=== PATIENT | male | born 1980 | race Hispanic/Latino ===

== ENCOUNTER 2017-10-12 18:26 | Emergency (ER) | payer MEDICAID ==
[2017-10-12 18:38] VITALS: TEMP 97.8
--- NOTE | 2017-10-12 19:21 | ED PDOC ---
Arrival/HPI - General Historian: Patient <Jori Eubanks A - Last Filed: 10/12/17 19:50> <Eliu Mendoza - Last Filed: 10/12/17 23:42> - General Chief Complaint: Back Pain Time Seen by Provider: 10/12/17 18:42 - History of Present Illness Narrative History of Present Illness (Text): 10/12/17 19:18 37yo male in ED with complaint of right sided lower back pain that radiates to his lower extremity. Notes that pain started while lifting boxes today. Pain is worse with movement and palpation. Denies urinary/fecal incontinence, abdominal pain, urinary symptoms, focal weakness, saddle anesthesia, any other complaint. (ChaJori A) Past Medical History - Provider Review Nursing Documentation Reviewed: Yes - Psychiatric Hx Psychophysiologic Disorder: No Hx Substance Use: No <Jori Eubanks A - Last Filed: 10/12/17 19:50> Family/Social History - Physician Review Nursing Documentation Reviewed: Yes Family/Social History: Unknown Family HX Smoking Status: Heavy Smoker > 10 Cigarettes Daily Hx Alcohol Use: No Hx Substance Use: No <Jori Eubanks A - Last Filed: 10/12/17 19:50> Allergies/Home Meds <Jori Eubanks A - Last Filed: 10/12/17 19:50> <Eliu Mendoza - Last Filed: 10/12/17 23:42> Allergies/Adverse Reactions: Allergies FISH Allergy (Verified 10/12/17 18:39) URTICARIA Review of Systems - Physician Review All systems were reviewed & negative as marked: Yes - Review of Systems Constitutional: Normal Eyes: Normal ENT: Normal Respiratory: Normal Cardiovascular: Normal Gastrointestinal: Normal Genitourinary Male: Normal Musculoskeletal: Back Pain Skin: Normal Neurological: Normal Endocrine: Normal Hemo/Lymphatic: Normal Psychiatric: Normal <Jori silverman A - Last Filed: 10/12/17 19:50> Physical Exam Vital Signs Reviewed: Yes Temperature: Afebrile Blood Pressure: Normal Pulse: Regular Respiratory Rate: Normal Appearance: Positive for: Well-Appearing, Non-Toxic, Comfortable Pain Distress: None Mental Status: Positive for: Alert and Oriented X 3 - Systems Exam Head: Present: Atraumatic, Normocephalic Pupils: Present: PERRL Extroacular Muscles: Present: EOMI Conjunctiva: Present: Normal Mouth: Present: Moist Mucous Membranes Neck: Present: Normal Range of Motion Respiratory/Chest: Present: Clear to Auscultation, Good Air Exchange. No: Respiratory Distress, Accessory Muscle Use Cardiovascular: Present: Regular Rate and Rhythm, Normal S1, S2. No: Murmurs Abdomen: Present: Normal Bowel Sounds. No: Tenderness, Distention, Peritoneal Signs Back: Present: Paraspinal Tenderness (Right paralumber tenderness), Pain with Leg Raise (right leg). No: Midline Tenderness Upper Extremity: Present: Normal Inspection. No: Cyanosis, Edema Lower Extremity: Present: Normal Inspection. No: Edema Neurological: Present: GCS=15, CN II-XII Intact, Speech Normal Skin: Present: Warm, Dry, Normal Color. No: Rashes Psychiatric: Present: Alert, Oriented x 3, Normal Insight, Normal Concentration <Diru,Happiness A - Last Filed: 10/12/17 19:50> Vital Signs Temp Pulse Resp BP Pulse Ox 10/12/17 20:15 68 17 110/70 100 10/12/17 18:34 97.8 F 79 18 106/69 95 Medical Decision Making <Diru,Happiness A - Last Filed: 10/12/17 19:50> <Eliu Mendoza - Last Filed: 10/12/17 23:42> ED Course and Treatment: 10/12/17 19:50 LS xray - Negative PT was ambulatory in ED. He was neurologically intact. His pain improved in ED with medication. Result was DW the pt. He will be DC home with NSAID and muscle relaxer for MS pain. Advised to apply warm compress and shower to that area. Referred to his PMD. TRT ED for any new or worsening symptoms (Diru,Happiness A) - RAD Interpretation Radiology Orders: 10/12/17 18:59 LS SPINE WITH OBL > 18 YRS OLD [RAD] Stat - Medication Orders Current Medication Orders: Discontinued Medications Cyclobenzaprine HCl (Flexeril) 10 mg PO STAT STA Stop: 10/12/17 19:00 Last Admin: 10/12/17 19:06 Dose: 10 mg Ketorolac Tromethamine (Toradol) 60 mg IM STAT STA Stop: 10/12/17 19:00 Last Admin: 10/12/17 19:06 Dose: 60 mg MAR Pain Assessment Document 10/12/17 19:06 SF (Rec: 10/12/17 19:06 SF [place] [id number]) Pain Reassessment Is this a pain reassessment? Yes Sleep Is patient sleeping during reassessment? No Presence of Pain Presence of Pain Yes Pain Scale Used Pain Scale Used Numeric Location Left, Right or Bilateral Right Upper or Lower Lower Pain Location Body Site Back IM Administration Charges Document 10/12/17 19:06 SF (Rec: 10/12/17 19:06 [place] [id number]) Injection Site MAR Injection Site Left Deltoid Charges for Administration # of IM Administrations 1 - PA / [employer] / Resident Statement / has reviewed & agrees with the documentation as recorded. <Eliu Mendoza - Last Filed: 10/12/17 23:42> Disposition/Present on Arrival - Present on Arrival Any Indicators Present on Arrival: No History of DVT/PE: No History of Uncontrolled Diabetes: No Urinary Catheter: No History of Decub. Ulcer: No History Surgical Site Infection Following: None - Disposition Have Diagnosis and Disposition been Completed?: Yes Disposition Time: 19:55 Patient Plan: Discharge <Jori Eubanks - Last Filed: 10/12/17 19:50> <Eliu Mendoza - Last Filed: 10/12/17 23:42> - Disposition Diagnosis: Back strain Disposition: HOME/ ROUTINE Condition: STABLE Discharge Instructions (ExitCare): Back Pain (ED) Additional Instructions: Apply warm compress to area follow up with your doctor Return to ED for any new or worsening symptoms Prescriptions: Cyclobenzaprine [Cyclobenzaprine HCl] 10 mg PO TID #10 tab Ibuprofen [Motrin Tab] 600 mg PO Q6 #20 tab Referrals: Lillie Cole DO [Primary Care Provider] - Follow up with primary Forms: Koko (Belizean), WORK NOTE
[2017-10-12 20:17] VITALS: BP 110/70; PULSE 68; RESP 17; O2SAT 100
--- NOTE | 2017-10-13 09:01 | RAD ---
PROCEDURE: Radiographs of the Lumbar Spine. HISTORY: Back pain COMPARISON: No prior. FINDINGS: BONES: There is sacralization of the L5 vertebral body. There is 7 mm degenerative retrolisthesis of L5 on S1. Bone alignment and mineralization are normal. There is no acute fracture the spondylolysis. DISC SPACES: There is mild degenerative disc disease at L5-S1 with reduced disc height and facet arthropathy. The remaining disc heights are maintained. OTHER FINDINGS: There are no pathologic soft tissue calcifications. Both sacroiliac joints are normal. IMPRESSION: No acute fracture or spondylolysis. Mild degenerative disc disease at L5-S1.
== END 2017-10-12 20:17 | disposition home or self-care (01) ==
LOC: ED 18:26
DX: S39.012A Strain of muscle, fascia and tendon of lower back, initial encounter (principal); X50.9XXA Other and unspecified overexertion or strenuous movements or postures, initial encounter; Y92.9 Unspecified place or not applicable
CPT/HCPCS: 72110; 96372; 99284; J1885

== ENCOUNTER 2017-10-30 17:13 | Emergency (ER) | payer MEDICAID ==
[2017-10-30 17:24] VITALS: BMI 52.3
[2017-10-30 17:25] VITALS: BP 121/67; PULSE 75; RESP 18; TEMP 98.4; O2SAT 100
--- NOTE | 2017-10-30 17:33 | ED PDOC ---
Arrival/HPI - General Time Seen by Provider: 10/30/17 17:19 Historian: Patient - History of Present Illness Narrative History of Present Illness (Text): 10/30/17 17:34 37yo male with no Past medical history present with complaint of grayish productive cough x2days. Also report nasal congestion and facial pain. States he started having localized headache to his right sided parietal area for 2weeks now. Report that headache is usually with orgasm. He did not take any medication for his symptoms. Denies fever, chills, sore throat, fever, abdominal pain, any other complaint. Past Medical History - Provider Review Nursing Documentation Reviewed: Yes - Psychiatric Hx Psychophysiologic Disorder: No Hx Substance Use: No Family/Social History - Physician Review Nursing Documentation Reviewed: Yes Family/Social History: Unknown Family HX Smoking Status: Heavy Smoker > 10 Cigarettes Daily Hx Alcohol Use: No Hx Substance Use: No Allergies/Home Meds Allergies/Adverse Reactions: Allergies FISH Allergy (Verified 10/30/17 17:29) URTICARIA Review of Systems - Physician Review All systems were reviewed & negative as marked: Yes - Review of Systems Constitutional: Normal Eyes: Normal ENT: Sinus Congestion Respiratory: Cough Cardiovascular: Normal Gastrointestinal: Normal Genitourinary Male: Normal Musculoskeletal: Normal Skin: Normal Neurological: Headache. absent: Dizziness, Focal Weakness Endocrine: Normal Hemo/Lymphatic: Normal Psychiatric: Normal Physical Exam Vital Signs Reviewed: Yes Vital Signs Temp Pulse Resp BP Pulse Ox 10/30/17 17:24 98.4 F 75 18 121/67 100 Temperature: Afebrile Blood Pressure: Normal Pulse: Regular Respiratory Rate: Normal Appearance: Positive for: Well-Appearing, Non-Toxic, Comfortable Pain Distress: None Mental Status: Positive for: Alert and Oriented X 3 - Systems Exam Head: Present: Atraumatic, Normocephalic Pupils: Present: PERRL Extroacular Muscles: Present: EOMI Conjunctiva: Present: Normal Mouth: Present: Moist Mucous Membranes Neck: Present: Normal Range of Motion Respiratory/Chest: Present: Clear to Auscultation, Good Air Exchange. No: Respiratory Distress, Accessory Muscle Use, Wheezes, Decreased Breath Sounds, Rales, Retracting, Rhonchi Cardiovascular: Present: Regular Rate and Rhythm, Normal S1, S2. No: Murmurs Abdomen: Present: Normal Bowel Sounds. No: Tenderness, Distention, Peritoneal Signs Back: Present: Normal Inspection Upper Extremity: Present: Normal Inspection. No: Cyanosis, Edema Lower Extremity: Present: Normal Inspection. No: Edema Neurological: Present: GCS=15, CN II-XII Intact, Speech Normal, Normal Sensory Function, Normal Cerebellar Funct, Norm Deep Tendon Reflexes, Gait Normal, Memory Normal, Other (No focal neurological deficit.) Skin: Present: Warm, Dry, Normal Color. No: Rashes Psychiatric: Present: Alert, Oriented x 3, Normal Insight, Normal Concentration Medical Decision Making ED Course and Treatment: 10/30/17 18:53 PT presented ofr stated history. He was afebrile and hemodynamcially stable. Head CT - Negative CXR NAD PT was Treated with Augmentin and tessalon for sinusitis and cough. He was DC hoem with same complaint. He was referred to a Neurologist for further outpt evaluation of his headache. TRT Emergency department for any new or worsening symptoms - RAD Interpretation Radiology Orders: 10/30/17 17:23 HEAD W/O CONTRAST [CT] Stat 10/30/17 17:24 CHEST TWO VIEWS (PA/LAT) [RAD] Stat Disposition/Present on Arrival - Present on Arrival Any Indicators Present on Arrival: No History of DVT/PE: No History of Uncontrolled Diabetes: No Urinary Catheter: No History Surgical Site Infection Following: None - Disposition Have Diagnosis and Disposition been Completed?: Yes Diagnosis: Sinusitis, Headache, Cough Disposition: HOME/ ROUTINE Disposition Time: 18:55 Patient Plan: Discharge Condition: STABLE Discharge Instructions (ExitCare): Sinusitis (ED), Acute Cough (ED), Acute Headache (ED) Additional Instructions: follow u- with your doctor Drink plenty of fluid and rest follow up with your doctor Return to Emergency department for any new or worsening symptoms Prescriptions: Amoxicillin/Clavulanate [Augmentin 875 MG-125 MG] 1 tab PO BID #14 tab Benzonatate [Tessalon Perle] 100 mg PO TID #30 capsule Referrals: Obed Hampton, [Primary Care Provider] - Follow up with primary Boo Ballesteros MD [Staff Provider] - Follow up with primary
--- NOTE | 2017-10-30 18:38 | CT ---
PROCEDURE: CT scan brain dated 10/30/2017. HISTORY: Headache. COMPARISON: No prior study available comparison. TECHNIQUE: Axial computed tomography images were obtained through the head/brain without intravenous contrast. Radiation dose: Total exam DLP = 87.13 mGy-cm. This CT exam was performed using one or more of the following dose reduction techniques: Automated exposure control, adjustment of the mA and/or kV according to patient size, and/or use of iterative reconstruction technique. FINDINGS: HEMORRHAGE: No intracranial hemorrhage. BRAIN: No mass effect or edema. No atrophy or chronic microvascular ischemic changes. VENTRICLES: No obstructive hydrocephalus. CALVARIUM: Calvarium appears grossly intact PARANASAL SINUSES: The frontal sinuses are underpneumatized/ hypoplastic. Remaining visualized paranasal sinuses well-developed. Mild mucosal thickening both maxillary antra right greater than left. . MASTOID AIR CELLS: Slightly underpneumatized sclerotic right mastoid air complex which also exhibits subtotal opacification. . OTHER FINDINGS: IMPRESSION: No acute intracranial hemorrhage. Mild mucosal thickening both maxillary antra right greater than left. Slightly underpneumatized and sclerotic right mastoid air complex which also exhibits subtotal opacification
[2017-10-30] MEDS ORDERED: Amoxicillin-Clav 875-125 mg Tab PO STA (18:49)
--- NOTE | 2017-10-30 19:06 | RAD ---
HISTORY: cough COMPARISON: No prior. TECHNIQUE: Chest PA and lateral FINDINGS: LUNGS: No active pulmonary disease. PLEURA: No significant pleural effusion identified. No pneumothorax apparent. CARDIOVASCULAR: Normal. OSSEOUS STRUCTURES: No significant abnormalities. VISUALIZED UPPER ABDOMEN: Normal. OTHER FINDINGS: None. IMPRESSION: No acute cardiopulmonary disease appreciated.
== END 2017-10-30 19:12 | disposition home or self-care (01) ==
LOC: ED 17:13
DX: J32.9 Chronic sinusitis, unspecified (principal); R51 Headache; R05 Cough; F17.210 Nicotine dependence, cigarettes, uncomplicated

== ENCOUNTER 2018-03-26 23:29 | Inpatient (IN) | payer MEDICAID ==
[2018-03-26 23:29] VITALS: BMI 52.3
[2018-03-27 00:53] LABS: BASO # 0.02 K/mm3 (0.0-2.0); BASO % 0.3 % (0.0-3.0); EOS # 0.4 (0.0-0.7); EOS % 7.2 % (1.5-5.0); GRAN # 2.89 (1.4-6.5); GRAN % 48.3 % (50.0-68.0); HEMOGLOBIN 13.9 g/dL (14.0-18.0); LYMPH # 2.1 (1.2-3.4); LYMPH % 35.2 % (22.0-35.0); MEAN CELL VOLUME 86.6 fl (80.0-105.0); MEAN CORPUSCULAR HEMOGLOBIN 29.6 pg (25.0-35.0); MEAN CORPUSCULAR HGB CONC 34.2 g/dl (31.0-37.0); MEAN PLATELET VOLUME 10.2 fl (7.0-11.0); MONO # 0.5 (0.1-0.6); RBC 4.69 10^6/uL (3.5-6.1); RED CELL DISTRIBUTION WIDTH 12.3 % (11.5-14.5)
[2018-03-27 01:08] LABS: ACETAMINOPHEN < 10.0 ug/ml (10.0-20.0); SALICYLATE < 1 mg/dL (2.0-20.0)
[2018-03-27 01:11] LABS: ALB/GLOB RATIO 1.2 (1.1-1.8); ALT/SGPT 52 U/L (7-56); AST/SGOT 38 U/L (17-59); BLOOD UREA NITROGEN 12 mg/dL (7-21); GFR NON-AFRICAN AMERICAN > 60
[2018-03-27 02:32] LABS: URINE BILIRUBIN NEGATIVE (NEGATIVE); URINE BLOOD NEGATIVE (NEGATIVE); URINE GLUCOSE (UA) NEGATIVE (NEGATIVE); URINE LEUKOCYTE ESTERASE NEGATIVE Leu/uL (NEGATIVE); URINE PROTEIN TRACE mg/dL (<30 mg/dL); URINE UROBILINOGEN 0.2 E.U./dL (<1 E.U./dL)
[2018-03-27 02:33] LABS: URINE APPEARANCE CLEAR (CLEAR); URINE COLOR YELLOW (YELLOW)
[2018-03-27 02:39] LABS: BARBITURATES, UR NEGATIVE (NEGATIVE); BENZODIAZEPINES, UR NEGATIVE (NEGATIVE); OPIATES, UR NEGATIVE (NEGATIVE); PHENCYCLIDINE, UR NEGATIVE (NEGATIVE)
[2018-03-27 02:47] LABS: URINE BACTERIA MOD (NEG); URINE EPITHELIAL CELLS 0 - 2 /hpf (0-5); URINE RBC 0 - 2 /hpf (0-2)
--- NOTE | 2018-03-27 04:42 | ED PDOC ---
Arrival/HPI - General Chief Complaint: Psychiatric Evaluation Time Seen by Provider: 03/26/18 23:46 Historian: Patient - History of Present Illness Narrative History of Present Illness (Text): Patient is a 37 year old male who presents to the Emergency department complaining of feeling depressed and wanting to hurt himself. Patient has no current plan, and has no homicidal ideation or hallucination. Patient reports that he has been off his psychiatric medications for approximately 1 month. He reports he is depressed over the year anniversary of his daughter's . Patient has no physical complaints. Time/Duration: Prior to Arrival Symptom Course: Unchanged Context: Home Past Medical History - Provider Review Nursing Documentation Reviewed: Yes - Infectious Disease Hx of Infectious Diseases: None - Cardiac Hx Cardiac Disorders: No Hx Hypertension: No - Pulmonary Hx Tuberculosis: No - Neurological HX Cerebrovascular Accident: No Hx Seizures: No - Hematological/Oncological Hx Cancer: No - Genitourinary/Gynecological Hx Sexually Transmitted Diseases: No - Psychiatric Hx Psychophysiologic Disorder: Yes Hx Anxiety: Yes Hx Bipolar Disorder: Yes Hx Depression: Yes Hx Substance Use: No Family/Social History - Physician Review Nursing Documentation Reviewed: Yes Family/Social History: No Known Family HX Smoking Status: Heavy Smoker > 10 Cigarettes Daily Hx Alcohol Use: No Hx Substance Use: No Allergies/Home Meds Allergies/Adverse Reactions: Allergies FISH Allergy (Verified 10/30/17 17:29) URTICARIA Home Medications: Home Meds Medication Instructions Recorded Confirmed No Known Home Med 03/26/18 03/26/18 Review of Systems - Physician Review All systems were reviewed & negative as marked: Yes - Review of Systems Constitutional: absent: Fevers Neurological: Other (No hallucination) Psychiatric: Depression, Suicidal Ideation Physical Exam Vital Signs Reviewed: Yes Vital Signs Temp Pulse Resp BP Pulse Ox 03/27/18 03:24 68 14 106/53 L 96 03/27/18 00:02 97.5 F L 71 18 115/75 96 Temperature: Afebrile Blood Pressure: Normal Pulse: Regular Respiratory Rate: Normal Appearance: Positive for: Well-Appearing Pain Distress: None Mental Status: Positive for: Alert and Oriented X 3 - Systems Exam Head: Present: Atraumatic, Normocephalic Pupils: Present: PERRL Extroacular Muscles: Present: EOMI Conjunctiva: Present: Normal Mouth: Present: Moist Mucous Membranes Neck: Present: Normal Range of Motion Respiratory/Chest: Present: Clear to Auscultation, Good Air Exchange. No: Respiratory Distress, Accessory Muscle Use Cardiovascular: Present: Regular Rate and Rhythm, Normal S1, S2. No: Murmurs Abdomen: No: Tenderness, Distention, Peritoneal Signs Back: Present: Normal Inspection Upper Extremity: Present: Normal Inspection. No: Cyanosis, Edema Lower Extremity: Present: Normal Inspection. No: Edema Neurological: Present: GCS=15, CN II-XII Intact, Speech Normal Skin: Present: Warm, Dry, Normal Color. No: Rashes Psychiatric: Present: Alert, Oriented x 3, Normal Insight, Normal Concentration Medical Decision Making ED Course and Treatment: Impression: Patient is a 37 year old male who is depressed and wants to hurt himself. Plan: --EKG --Chest X-ray --PES -- Reassess and disposition Prior Visits: Notes and results from previous visits were reviewed. Patient was last seen in the emergency department on Progress Notes: EKG shows NSR at 70 BPM with normal axis and intervals. Interpreted by me. Chest X-ray shows no acute processes. Interpreted by me. Patient evaluated by PES. 03/27/18 03:10 Patient is medically cleared for admission, and is admitted to Psychiatry. - Lab Interpretations Lab Results: 03/27/18 00:33 03/27/18 00:33 Lab Results 03/27/18 01:49: Urine Opiates Screen Negative, Urine Methadone Screen Negative, Ur Barbiturates Screen Negative, Ur Phencyclidine Scrn Negative, Ur Amphetamines Screen Negative, U Benzodiazepines Scrn Negative, U Oth Cocaine Metabols Negative, U Cannabinoids Screen Negative 03/27/18 01:49: Urine Color Yellow, Urine Appearance Clear, Urine pH 6.0, Ur Specific [place] 1.025, Urine Protein Trace H, Urine Glucose (UA) Negative, Urine Ketones Negative, Urine Blood Negative, Urine Nitrate Negative, Urine Bilirubin Negative, Urine Urobilinogen 0.2, Ur Leukocyte Esterase Negative, Urine RBC 0 - 2, Urine WBC 1 - 3, Ur Epithelial Cells 0 - 2, Urine Bacteria Mod 03/27/18 00:33: Alcohol, Quantitative < 10 03/27/18 00:33: Salicylates < 1 L, Acetaminophen < 10.0 L 03/27/18 00:33: Sodium 142, Potassium 3.9, Chloride 101, Carbon Dioxide 29, Anion Gap 16, BUN 12, Creatinine 0.7 L, Est GFR ( Amer) > 60, Est GFR ( Non-Af Amer) > 60, Random Glucose 85, Calcium 9.0, Total Bilirubin 0.3, AST 38, ALT 52, Alkaline Phosphatase 74, Total Protein 7.3, Albumin 4.0, Globulin 3.3, Albumin/Globulin Ratio 1.2 03/27/18 00:33: WBC 6.0, RBC 4.69, Hgb 13.9 L, Hct 40.6 L, MCV 86.6, MCH 29.6, MCHC 34.2, RDW 12.3, Plt Count 146, MPV 10.2, Gran % 48.3 L, Lymph % (Auto) 35.2 H, Kimble % (Auto) 9.0 H, Eos % (Auto) 7.2 H, Baso % (Auto) 0.3, Gran # 2.89 , Lymph # (Auto) 2.1, Kimble # (Auto) 0.5, Eos # (Auto) 0.4, Baso # (Auto) 0.02 - RAD Interpretation Radiology Orders: 03/26/18 23:46 CHEST PORTABLE [RAD] Stat Flitch Hanger: ED Physician - EKG Interpretation Interpreted by ED Physician: Yes Type: 12 lead EKG - Scribe Statement The provider has reviewed the documentation as recorded by the Beccaibchris Dong Provider Scribe Attestation: All medical record entries made by the Scribe were at my direction and personally dictated by me. I have reviewed the chart and agree that the record accurately reflects my personal performance of the history, physical exam, medical decision making, and the department course for this patient. I have also personally directed, reviewed, and agree with the discharge instructions and disposition. Disposition/Present on Arrival - Present on Arrival Any Indicators Present on Arrival: No History of DVT/PE: No History of Uncontrolled Diabetes: No Urinary Catheter: No History of Decub. Ulcer: No History Surgical Site Infection Following: None - Disposition Have Diagnosis and Disposition been Completed?: Yes Diagnosis: MDD (major depressive disorder) Disposition: HOSPITALIZED Disposition Time: 03:15 Condition: STABLE
[2018-03-27] MEDS ORDERED: Magnesium Hydroxide Susp 30 ml UD PO PRN (05:49)
[2018-03-27] MEDS ORDERED: Alum-Mag Hydrox-Simethicone Susp (30 mL) PO PRN (05:49)
[2018-03-27 06:41] LABS: GLUCOSE,FASTING 84 mg/dL (65-110); HDL CHOLESTEROL 27 mg/dL (29-60)
[2018-03-27 06:52] LABS: LDL CHOLESTEROL 55 mg/dL (0-129)
--- NOTE | 2018-03-27 07:48 | CP.PCM.CON ---
Addendum entered and electronically signed by Jane Sow DO 03/27/18 14:25: Vitamin D low- will replace, recommend that pt be discharged on vitamin D supplementation. Original Note: <Jane Sow - Last Filed: 03/27/18 12:03> History of Present Illness - History of Present Illness History of Present Illness: IM consult note for Dr. Antelmo Sow, PGY-1 Pt S & E at bedside at 0735 37M w/no sig PMH consulted for medical management during inpatient psychiatric admission for depression due to loss of daughter & brother. Admits to feelings of depression. Denies N & V, F & C, SOB, chest pain, palpitations, SONG, cough, sore throat, changes in bowel or bladder habits, other complaints. PMH: Denies PSH: Denies All: Fish (hives) SH: Admits to tobacco use 1ppd x 20 yrs, denies EToH or Illicit drug use PMD: Denies FH: Non contributory Review of Systems - Review of Systems All systems: reviewed and no additional remarkable complaints except - Constitutional Constitutional: absent: Chills, Fever, Headache, Weakness - EENT Eyes: absent: Change in Vision Nose/Mouth/Throat: absent: Sore Throat - Cardiovascular Cardiovascular: absent: Chest Pain, Leg Edema, Palpitations - Respiratory Respiratory: absent: Cough - Gastrointestinal Gastrointestinal: absent: Abdominal Pain, Constipation, Diarrhea, Nausea, Vomiting - Genitourinary Genitourinary: absent: Change in Urinary Stream, Dysuria - Musculoskeletal Musculoskeletal: absent: Back Pain, Numbness, Tingling - Integumentary Integumentary: absent: New Lesions, Rash - Neurological Neurological: absent: Numbness, Tingling - Psychiatric Psychiatric: Depression, Hopelessness, Suicidal Ideation. absent: Change in Appetite Past Patient History - Infectious Disease Hx of Infectious Diseases: None - Past Social History Smoking Status: Heavy Smoker > 10 Cigarettes Daily - CARDIAC Hx Cardiac Disorders: No Hx Hypertension: No - PULMONARY Hx Tuberculosis: No - NEUROLOGICAL HX Cerebrovascular Accident: No Hx Seizures: No - HEMATOLOGICAL/ONCOLOGICAL Hx Cancer: No - GENITOURINARY/GYNECOLOGICAL Hx Sexually Transmitted Disorders: No - PSYCHIATRIC Hx Psychophysiologic Disorder: Yes Hx Anxiety: Yes Hx Bipolar Disorder: Yes Hx Depression: Yes Hx Substance Use: No - SURGICAL HISTORY Hx Surgeries: No Meds Allergies/Adverse Reactions: Allergies Allergy/AdvReac Type Severity Reaction Status Date / Time FISH Allergy URTICARIA Verified 03/27/18 07:53 - Medications Medications: Current Medications Acetaminophen (Tylenol 325mg Tab) 650 mg PO Q6H PRN PRN Reason: Pain, moderate (4-7) Al Hydrox/Mg Hydrox/Simethicone (Maalox Plus 30 Ml) 30 ml PO DAILY PRN PRN Reason: Indigestion / Heartburn Magnesium Hydroxide (Milk Of Magnesia) 30 ml PO DAILY PRN PRN Reason: Constipation Physical Exam - Constitutional Appears: Non-toxic, No Acute Distress - Head Exam Head Exam: ATRAUMATIC, NORMAL INSPECTION, NORMOCEPHALIC - Eye Exam Eye Exam: EOMI, Normal appearance - ENT Exam ENT Exam: Mucous Membranes Moist, Normal Exam - Neck Exam Neck exam: Positive for: Full Rom, Normal Inspection - Respiratory Exam Respiratory Exam: Clear to Auscultation Bilateral, NORMAL BREATHING PATTERN. absent: Rales, Rhonchi, Wheezes - Cardiovascular Exam Cardiovascular Exam: REGULAR RHYTHM, +S1, +S2 - GI/Abdominal Exam GI & Abdominal Exam: Normal Bowel Sounds, Soft. absent: Distended, Firm, Tenderness - Extremities Exam Extremities exam: Positive for: normal inspection. Negative for: pedal edema - Back Exam Back exam: NORMAL INSPECTION - Neurological Exam Neurological exam: Alert, CN II-XII Intact, Oriented x3 - Psychiatric Exam Psychiatric exam: Depressed, Normal Affect - Skin Skin Exam: Dry, Intact, Normal Color, Warm Additional comments: Multiple tattoos over upper extremities Results - Vital Signs Recent Vital Signs: Last Vital Signs Temp 97.6 F 03/27/18 07:36 Pulse 71 03/27/18 07:36 Resp 20 03/27/18 07:36 BP 91/61 L 03/27/18 07:36 Pulse Ox 96 03/27/18 03:24 - Labs Result Diagrams: 03/27/18 00:33 03/27/18 00:33 Labs: Laboratory Results - last 24 hr 03/27/18 03/27/18 06:17 06:17 Fasting Glucose 84 Triglycerides 88 Cholesterol 103 L LDL Cholesterol Direct 55 HDL Cholesterol 27 L TSH 3rd Generation 0.93 Assessment & Plan - Assessment and Plan (Free Text) Assessment: 37M w/no sig PMH consulted for medical management in setting of psych admission for depression, SI Plan: Lipid panel with low HDL -27; low chol-103 TSH WNL - 0.93 Lab work otherwise WNL FU Vitamin D level FU A1c Further mgmt as per psych team Nicotine abuse Currently refusing nicotine patch Pt instructed to follow up with primary care provider upon discharge for continued medical management. Pt without medical problems, no need for further medical management, will follow up labs and sign off of patient. Please re-consult as needed. DW attending Magi, PGY-1 - Date & Time Date: 03/27/18 Time: 07:48 <Armaan Mcduffie - Last Filed: 03/27/18 17:31> Meds - Medications Medications: Current Medications Acetaminophen (Tylenol 325mg Tab) 650 mg PO Q6H PRN PRN Reason: Pain, moderate (4-7) Al Hydrox/Mg Hydrox/Simethicone (Maalox Plus 30 Ml) 30 ml PO DAILY PRN PRN Reason: Indigestion / Heartburn Bupropion HCl (Wellbutrin Xl) 150 mg PO DAILY [facility] Last Admin: 03/27/18 13:44 Dose: 150 mg Ergocalciferol (Drisdol 50,000 Intl Units Cap) 1 cap PO Q7D MANNY Last Admin: 03/27/18 17:18 Dose: 1 cap Gabapentin (Neurontin) 100 mg PO TID MANNY PRN Reason: Protocol Last Admin: 03/27/18 17:18 Dose: 100 mg Magnesium Hydroxide (Milk Of Magnesia) 30 ml PO DAILY PRN PRN Reason: Constipation Zolpidem Tartrate (Ambien) 5 mg PO HS PRN; Protocol PRN Reason: Insomnia Results - Vital Signs Recent Vital Signs: Last Vital Signs Temp 97.6 F 03/27/18 07:36 Pulse 63 03/27/18 16:00 Resp 20 03/27/18 07:36 BP 84/47 L 03/27/18 16:00 Pulse Ox 100 03/27/18 05:00 - Labs Result Diagrams: 03/27/18 00:33 03/27/18 00:33 Labs: Laboratory Results - last 24 hr 03/27/18 03/27/18 03/27/18 06:17 06:17 06:17 Fasting Glucose 84 Hemoglobin A1c Triglycerides 88 Cholesterol 103 L LDL Cholesterol Direct 55 HDL Cholesterol 27 L 25-OH Vitamin D Total TSH 3rd Generation 0.93 RPR Nonreactive 03/27/18 03/27/18 07:44 Unknown Fasting Glucose Hemoglobin A1c 5.4 Triglycerides Cholesterol LDL Cholesterol Direct HDL Cholesterol 25-OH Vitamin D Total 18.7 L TSH 3rd Generation RPR Attending/Attestation - Attestation I have personally seen and examined this patient.: Yes I have fully participated in the care of the patient.: Yes I have reviewed all pertinent clinical information: Yes Notes (Text): 03/27/18 17:29 attending note; Patient seen and examined with resident in psychiatric floor. Patient is a 37-year-old male with no significant past medical history is admitted for depression. Patient denied any medical issues at this time. low vitamin D level; started on po vitamin D therapy. labs reviewed. Patient is medically stable. Please reconsult as needed. Advised to follow-up with PMD of choice upon discharge for routine medical follow-up.
[2018-03-27 07:52] VITALS: O2SAT 100
--- NOTE | 2018-03-27 08:03 | PCM.BM ---
<JamesMadhav - Last Filed: 03/27/18 08:00> Treatment Plan Problems - Problems identified on initial assessmt Ineffective Coping Date Initiated: 03/27/18 Time Initiated: 05:00 Assessment reference: NA Status: Active Priority: 1 Medication Nonadherence Date Initiated: 03/27/18 Time Initiated: 05:00 Assessment reference: NA Status: Active Priority: 2 Hopelessness/Helplessness Date Initiated: 03/27/18 Time Initiated: 05:00 Assessment reference: NA Status: Active Priority: 3 Feelings of Worthlessness Date Initiated: 03/27/18 Time Initiated: 05:00 Assessment reference: NA Status: Active Priority: 4 Treatment assets and liabiliti Patient Assests: cooperative, insightful, ADL independent, physically healthy, cognitively intact, good interpersonal skills Patient Liabilities: live alone, financial problems, poor support system, substance abuse, medical problems - Milieu Protocol Maintain good personal hygiene: daily Encourage regular showers, every shift Remind patient to perform daily oral care, every shift Assist patient to perform ADL's Maintain personal safety: every shift Educate patient to report safety concerns to staff, every shift Monitor environment for contraband/sharps Medication safety: Monitor for expected outcome, potential side effects: every shift, Assess barriers to learning: every shift, Assess readiness for medication education: every shift Family Contact Family involvement: Family/SO is involved Family contact: Patient agrees to contact - Goals for Treatment Patient goals for treatment: "feeling good about myself" Discharge/Continuing Care - Education Needs Education Needs: Patient Medication, Patient Diagnosis/Disease Process, Patient Coping Skills, Patient Anger Management skills, Patient Placement options, Patient Pain, Patient Nutrition, Patient Health Practices/Safety, Patient Personal Hygiene/Grooming, Patient Aftercare Safety Plan - Discharge Discharge Criteria: Tolerates medication w/o severe side effects <Markos Zimmer - Last Filed: 03/27/18 10:04> - Diagnosis (1) Anxiety Status: Acute Interventions: Group, milieu and supportive tx Restart Wellbutrin XL 150 mg po daily for depression Restart Neurontin 100 mg po TID for mood control and anxiety Restart Ambien 5 mg HS prn: insomnia 03/27/18 10:05 (2) MDD (major depressive disorder) Status: Acute Interventions: Group, milieu and supportive tx Restart Wellbutrin XL 150 mg po daily for depression Restart Neurontin 100 mg po TID for mood control and anxiety Restart Ambien 5 mg HS prn: insomnia 03/27/18 10:05 <Laury Weathers - Last Filed: 03/28/18 16:21> Family Contact Family involvement: Famliy/SO not involved Family contact: Patient declines to allow family contact at present
--- NOTE | 2018-03-27 09:01 | RAD ---
HISTORY: psych eval COMPARISON: 10/30/2017 FINDINGS: LUNGS: No active pulmonary disease. PLEURA: No significant pleural effusion identified, no pneumothorax apparent. CARDIOVASCULAR: Normal. OSSEOUS STRUCTURES: No significant abnormalities. VISUALIZED UPPER ABDOMEN: Normal. OTHER FINDINGS: None. IMPRESSION: No active disease.
--- NOTE | 2018-03-27 10:04 | PCM.PSYCH ---
Initial Psychiatric Evaluation - Initial Psychiatric Evaluation Type of Admission: Voluntary Legal Status: Capacity Chief Complaint (in patient's own words): "I am better now, I was suicidal for a minute" History of Present Illness and Precipitating Events: Patient is a single 37 year old single, male with a history of depression and opiate dependency, prior admissions for detox and depression, noncompliant with medications x1 month who presented to the Emergency department today complaining of feeling depressed and wanting to hurt himself. I reviewed ER records as well as nursing notes. I attempted to interview patient on two occasions this morning and he was superficial, guarded and mildly dismissive during both encounters. Patient presents as archibald but in fair control, he is not hostile or irritable. He admits to feeling depressed for a few days and walked into the ER for help because he started having suicidal thoughts "for a minute". Presently he is back-tracking and reports that " nothing is wrong" and that he is "feeling better now". Affect is constricted and incongruent. Patient is coherent and appears evasive. Will not discuss any current stressors in his life. Patient denied psychiatric outpatient history, med management or admissions. Denied drug use. There were no behavioral issues overnight. Fortunately patient was more forthcoming with nursing staff when he first arrived on the unit this morning. Nursing report by Madhav Ramirez (much appreciated by this provider) indicates that patient has not been taking psychiatric medications Wellbutrin, Neurontin and amiben for 2 months. He has been depressed with symptoms of hopelessness, helplessness, loneliness and anxiety due to multiple stressors. Patient's daughter committed suicide in January 2017, older brother from heroin overdose in 12/2017 and patient lost his job at a [employer] agency x2 weeks ago. Patient is also on probation in [facility]. PSYCHIATRIC HISTORY (obtained from nursing note by Madhav Ramirez today as patient denied any history to this provider during both my visits) One prior admission at age 15 due to overdose on pills. Has been going to outpatient treatment 3 days/week in [place]. Noncompliant with medications Wellbutrin, Ambien and Neurontin x2 months. Unclear if this outpatient treatment is mandated through drug court. SOCIAL HISTORY Born and raised in [place]. Single. Patient's daughter committed suicide January 2017 and older brother of heroin overdose in 12/2017. Patient reports living by himself in an apartment. Unemployed, lost job at [employer] x2 weeks ago due to work slowdown (per nursing report). 9th grade education. Patient denied drug or alcohol history to this provider but informed staff that he has a history of heroin addiction with admissions to [facility] in 2015 for detox and [facility] in 2017. Apparently patient has been abstinent from heroin since 2017, UDS appears to confirm this. Current Medications: Active Medications Generic Name Dose Route Start Last Admin Trade Name Freq PRN Reason Stop Dose Admin Acetaminophen 650 mg 03/27/18 05:49 Tylenol 325mg Tab PO Q6H PRN Pain, moderate (4-7) Al Hydrox/Mg Hydrox/Simethicone 30 ml 03/27/18 05:49 Maalox Plus 30 Ml PO DAILY PRN Indigestion / Heartburn Magnesium Hydroxide 30 ml 03/27/18 05:49 Milk Of Magnesia PO DAILY PRN Constipation Past Psychiatric History - Past Psychiatric History Pertinent Medical Hx (Current Medical&Sleep Prob, Allergies): Allergies Allergy/AdvReac Type Severity Reaction Status Date / Time FISH Allergy URTICARIA Verified 03/27/18 07:53 Gabapentin 300 mg PO TID 03/27/18 Wellbutrin 75 mg PO DAILY 03/27/18 Zolpidem [Ambien] 5 mg PO PRN PRN 03/27/18 Mental Status Examination - Personal Presentation Personal Presentation: Looks stated age - Affect Affect: Constricted - Motor Activity Motor Activity: Calm - Reliability in Providing Information Reliability in Providing Information: Other (patient reticent this morning ) - Speech Speech: Organized - Mood Mood: Depressed, Anxious - Formal Thought Process Formal Thought Process: No Impairment - Obsessions/Compulsions Obsessions: No Compulsions: No - Cognitive Functions Orientation: Person, Place, Situation Sensorium: Alert Attention/Concentration: Attentive Estimate of Intelligence: Average Judgement: Intact, as evidence by: Insight regarding need for hospitalization Memory: Recent intact, as evidence by: Ability to recall events of the day, Remote intact, as evidenced by: Ability to recall historical events - Risk Risk: Suicidal - Limitations Limitations: Living alone, Other (deaths of 2 close family members in the past year) DSM 5 DX - DSM 5 DSM 5 Diagnosis: Major Depression, Severe without psychotic symptoms Opiate Dependency in remission since 08/2017 Adjustment disorder with depression and anxiety Grief - Recommended/Plan of Treatment Treatment Recommendations and Plan of Treatment: * Group, milieu and supportive tx * Restart Wellbutrin XL 150 mg po daily for depression * Restart Neurontin 100 mg po TID for mood control and anxiety * Restart Ambien 5 mg HS prn: insomnia * Vitals reviewed and noted below: Selected Entries 03/27/18 03/27/18 03/27/18 00:02 03:24 05:00 Temperature 97.5 F L 97.6 F Pulse Rate 71 68 71 Respiratory 18 14 18 Rate Blood Pressure 115/75 106/53 L 91/61 L 03/27/18 07:36 Temperature 97.6 F Pulse Rate 71 Respiratory 20 Rate Blood Pressure 91/61 L ER LABS AND STUDIES 03/27/18 01:49: Urine Opiates Screen Negative, Urine Methadone Screen Negative, Ur Barbiturates Screen Negative, Ur Phencyclidine Scrn Negative, Ur Amphetamines Screen Negative, U Benzodiazepines Scrn Negative, U Oth Cocaine Metabols Negative, U Cannabinoids Screen Negative 03/27/18 01:49: Urine Color Yellow, Urine Appearance Clear, Urine pH 6.0, Ur Specific [place] 1.025, Urine Protein Trace H, Urine Glucose (UA) Negative, Urine Ketones Negative, Urine Blood Negative, Urine Nitrate Negative, Urine Bilirubin Negative, Urine Urobilinogen 0.2, Ur Leukocyte Esterase Negative, Urine RBC 0 - 2, Urine WBC 1 - 3, Ur Epithelial Cells 0 - 2, Urine Bacteria Mod 03/27/18 00:33: Alcohol, Quantitative < 10 03/27/18 00:33: Salicylates < 1 L, Acetaminophen < 10.0 L 03/27/18 00:33: Sodium 142, Potassium 3.9, Chloride 101, Carbon Dioxide 29, Anion Gap 16, BUN 12, Creatinine 0.7 L, Est GFR ( Amer) > 60, Est GFR ( Non-Af Amer) > 60, Random Glucose 85, Calcium 9.0, Total Bilirubin 0.3, AST 38, ALT 52, Alkaline Phosphatase 74, Total Protein 7.3, Albumin 4.0, Globulin 3.3, Albumin/Globulin Ratio 1.2 03/27/18 00:33: WBC 6.0, RBC 4.69, Hgb 13.9 L, Hct 40.6 L, MCV 86.6, MCH 29.6, MCHC 34.2, RDW 12.3, Plt Count 146, MPV 10.2, Gran % 48.3 L, Lymph % (Auto) 35.2 H, [place] % (Auto) 9.0 H, Eos % (Auto) 7.2 H, Baso % (Auto) 0.3, Gran # 2.89 , Lymph # (Auto) 2.1, [place] # (Auto) 0.5, Eos # (Auto) 0.4, Baso # (Auto) 0.02 03/27/18 EKG shows NSR at 70 BPM with normal axis and intervals. Interpreted by me. Chest X-ray shows no acute processes. Interpreted by Dr. Kirkpatrick. FLOOR LABS 03/27/18 03/27/18 06:17 06:17 Triglycerides 88 Cholesterol 103 L LDL Cholesterol Direct 55 HDL Cholesterol 27 L TSH 3rd Generation 0.93
[2018-03-27] MEDS: buPROPion 150 mg/24 Hours XL Tab PO SCH ×2 (13:44→17:34)
--- NOTE | 2018-03-27 15:02 | CARD ---
APPROVED REPORT EKG Measurement Heart [id number] <Conclusion> Normal sinus rhythm with sinus arrhythmia Normal ECG
[2018-03-27] MEDS: Ergocalciferol 50,000 Intl Units Cap PO SCH ×2 (17:18→17:34)
[2018-03-28 07:20] VITALS: BP 95/62; PULSE 65; RESP 16; TEMP 97.4
[2018-03-28] MEDS: buPROPion 150 mg/24 Hours XL Tab PO SCH ×2 (08:52→09:03)
--- NOTE | 2018-03-28 15:54 | PCM.PYCHDC ---
Mental Status Examination - Mental Status Examination Orientation: Person, Place, Situation, Time Memory: Intact Mood: Neutral Affect: Broad Speech: Appropriate Attention: WNL Concentration: WNL Association: WNL Fund of Knowledge: WNL Formal Thought Process: No Impairment Description of patient's judgement and insight: Impaired by his need to fabricate to get a perception of a needed rest. Psychotic Thoughts and Behaviors: Denied and not overtly evident Suicidal Ideation: No Current Homicidal Ideation?: No Discharge Summary - Discharge Note Reason for Hospitalization: Patient initially said he was suicidal. Claiming that his daughter hung herself several months ago and his brother committed suicide. Upon being more relaxed on the psychiatric unit and without any overt signs of mood or thought disturbance he admitted that he has lied needed a break. He has recently been discharged from senior living and has a series of incarcerations (in the frequency and duration of which could not be established for this fabricating patient) he is to see a chief financial officer and is under legal jurisdiction for heroin use and sales. Whatever psychosocial history the patient has presented as open to question. Laboratory Data: Abnormal Lab Results 03/27/18 06:17 RPR Nonreactive Consultations:: List each consultation separately and include: 1. Reason for request. 2. Findings. 3. Follow-up Summary of Hospital Course include:: 1. Description of specific treatment plan utilized for patients during their course of treatmen. 2. Summarize the time- course for resolution of acute symptoms and/or regressed behaviors. 3. Describe issues identified and worked on during hospitalization. 4. Describe medication utilized. 5. Describe medical problems identified and treated. 6. Reassessment of suicide risk Summary of Hospital Course: Patient admitted to fabricating his story in a treatment team meeting. He was discharged AGAINST MEDICAL ADVICE. - Diagnosis (1) Opioid abuse Current Visit: Yes Status: Acute Priority: Medium (2) Antisocial personality disorder Current Visit: Yes Status: Chronic Priority: Medium - Final Diagnosis (DSM 5) Condition upon Discharge: STABLE DSM 5: Malingering Disposition: HOME/ ROUTINE Follow-up Treatment Plan: Patient involved in court mandated day program
== END 2018-03-28 16:29 | disposition left against medical advice (07) | DRG 428 ==
LOC: ED 23:29 → ERH 03-27 03:32 → PSYC 03-27 04:59
PROVIDERS: ADMIT Psychiatry & Neurology Addiction Medicine; ATTEND Psychiatry & Neurology Addiction Medicine
DX: F60.2 Antisocial personality disorder (principal); F11.10 Opioid abuse, uncomplicated; Z76.5 Malingerer [conscious simulation]; Z91.14 Patient's other noncompliance with medication regimen; F17.210 Nicotine dependence, cigarettes, uncomplicated

== ENCOUNTER 2018-05-07 15:44 | Emergency (ER) | payer MEDICAID ==
[2018-05-07 15:44] VITALS: BMI 52.3
[2018-05-07 16:20] VITALS: RESP 18; TEMP 98.7; O2SAT 98
--- NOTE | 2018-05-07 16:26 | ED PDOC ---
Arrival/HPI - General Time Seen by Provider: 05/07/18 16:26 Historian: Patient - History of Present Illness Narrative History of Present Illness (Text): 05/07/18 16:26 Patient was just placed in emergency department room. 05/07/18 16:30 This 37 yo male presents to this emergency department complaining of right posterior chest pain, and left 3rd finger pain after lifting small boxes x 2 days. Patient denies shortness of breath, cough, skin rash, abdominal pain, urinary symptoms, palpitation, fever, trauma, heavy lifting, weakness, paresthesias, lower back pain, IV drug use, or abnormal gait. Patient stated this pain started at work. Time/Duration: Other (see hpi) Quality: Aching Context: Work Past Medical History - Provider Review Nursing Documentation Reviewed: Yes - Infectious Disease Hx of Infectious Diseases: None - Cardiac Hx Cardiac Disorders: No Hx Hypertension: No - Pulmonary Hx Tuberculosis: No - Neurological HX Cerebrovascular Accident: No Hx Seizures: No - Hematological/Oncological Hx Cancer: No - Genitourinary/Gynecological Hx Sexually Transmitted Diseases: No - Psychiatric Hx Psychophysiologic Disorder: Yes Hx Anxiety: Yes Hx Bipolar Disorder: Yes Hx Depression: Yes Hx Substance Use: No Family/Social History - Physician Review Nursing Documentation Reviewed: Yes Family/Social History: Other (noncontributory) Smoking Status: Heavy Smoker > 10 Cigarettes Daily Hx Alcohol Use: No Hx Substance Use: No Allergies/Home Meds Allergies/Adverse Reactions: Allergies FISH Allergy (Verified 03/27/18 07:53) URTICARIA Home Medications: Home Meds Medication Instructions Recorded Confirmed Gabapentin 300 mg PO TID 03/27/18 03/27/18 Wellbutrin 75 mg PO DAILY 03/27/18 03/27/18 Zolpidem [Ambien] 5 mg PO PRN PRN 03/27/18 03/27/18 Review of Systems - Review of Systems Constitutional: Normal. absent: Fatigue, Weight Change, Fevers Eyes: Normal ENT: Normal Respiratory: Normal. absent: SOB, Cough Cardiovascular: Normal. absent: Chest Pain, Palpitations, Edema, Calf Pain, MORALES , Orthopnea, Syncope Gastrointestinal: Normal. absent: Abdominal Pain, Nausea, Vomiting Genitourinary Male: Normal, Other Musculoskeletal: Normal, Back Pain. absent: Neck Pain Skin: Normal. absent: Rash Neurological: Normal. absent: Headache, Dizziness, Focal Weakness, Gait Changes , Speech Changes, Facial Droop, Disequilibrium, Seizure Endocrine: Normal Hemo/Lymphatic: Normal Psychiatric: Normal Physical Exam Vital Signs Temp Pulse Resp BP Pulse Ox 05/07/18 16:19 98.7 F 75 18 112/66 98 Temperature: Afebrile Blood Pressure: Normal Pulse: Regular Respiratory Rate: Normal Appearance: Positive for: Well-Appearing, Non-Toxic, Comfortable Pain Distress: None Mental Status: Positive for: Alert and Oriented X 3 - Systems Exam Head: Present: Atraumatic, Normocephalic Pupils: Present: PERRL Extroacular Muscles: Present: EOMI Conjunctiva: Present: Normal Mouth: Present: Moist Mucous Membranes Neck: Present: Normal Range of Motion Respiratory/Chest: Present: Clear to Auscultation, Good Air Exchange, Tender to Palpation (Mild tenderness over right posterior lower rib tenderness. No chest flail. No ecchymosis or swelling. No skin lesion.). No: Respiratory Distress , Accessory Muscle Use, Wheezes, Decreased Breath Sounds, Rales, Retracting, Rhonchi Cardiovascular: Present: Regular Rate and Rhythm, Normal S1, S2. No: Murmurs Abdomen: Present: Normal Bowel Sounds. No: Tenderness, Distention, Peritoneal Signs, Rebound Back: Present: Normal Inspection. No: CVA Tenderness, Midline Tenderness, Paraspinal Tenderness, Pain with Leg Raise Upper Extremity: Present: Normal Inspection, Normal ROM, NORMAL PULSES, Neurovascularly Intact, Capillary Refill < 2s. No: Cyanosis, Edema Lower Extremity: Present: Normal Inspection, NORMAL PULSES, Normal ROM, Neurovascularly Intact. No: Edema, CALF TENDERNESS, Erythema, Temperature Abnormalties, Capillary Refill < 2 s Neurological: Present: GCS=15, CN II-XII Intact, Speech Normal, Motor Func Grossly Intact, Normal Sensory Function, Normal Cerebellar Funct, Gait Normal Skin: Present: Warm, Dry, Normal Color. No: Rashes Psychiatric: Present: Alert, Oriented x 3, Normal Insight, Normal Concentration Medical Decision Making ED Course and Treatment: 05/07/18 18:06 Re-evaluation. Patient feels better. Discussed results and plan with patient who expresses understanding. All questions answered and there is agreement with the plan to discharge home with instructions. Patient stable for discharge. Return if symptoms persist or worsen. Re-evaluation Time: 18:06 Reassessment Condition: Re-examined, Improved - RAD Interpretation Narrative RAD Interpretations (Text): 05/07/18 18:05 FINDINGS: Negative study for displaced rib fracture. No underlying pleural or pulmonary parenchymal abnormalities IMPRESSION: No significant or acute findings to account for/ related to the clinical presentation. 05/07/18 18:06 FINDINGS: LEFT MIDDLE FINGER: Left middle finger normal, without fracture of focal lesion. Remainder of the left hand (as seen on the AP view) is grossly unremarkable. JOINTS: Normal. SOFT TISSUES: Normal. OTHER FINDINGS: None. IMPRESSION: Normal left middle finger radiographs. 05/07/18 18:06 FINDINGS: LUNGS: Hyperinflation without focal abnormality. PLEURA: No significant pleural effusion identified. No pneumothorax apparent. CARDIOVASCULAR: Normal. OSSEOUS STRUCTURES: No significant abnormalities. VISUALIZED UPPER ABDOMEN: Normal. OTHER FINDINGS: None. IMPRESSION: No active disease. No significant interval change compared to the prior examination(s). Radiology Orders: 05/07/18 16:39 CHEST TWO VIEWS (PA/LAT) [RAD] Stat RIBS RIGHT [RAD] Stat 05/07/18 16:40 HAND LEFT 3RD DIGIT (FINGER) [RAD] Stat - Medication Orders Current Medication Orders: Discontinued Medications Ketorolac Tromethamine (Toradol) 30 mg IM STAT STA Stop: 05/07/18 16:42 Last Admin: 05/07/18 17:05 Dose: 30 mg [facility] Pain Assessment Document 05/07/18 17:05 EQ (Rec: 05/07/18 17:06 EQ [email or web address] Pain Reassessment Is this a pain reassessment? No Sleep Is patient sleeping during reassessment? No Presence of Pain Presence of Pain Yes IM Administration Charges Document 05/07/18 17:05 EQ (Rec: 05/07/18 17:06 EQ [email or web address] Charges for Administration # of IM Administrations 1 Disposition/Present on Arrival - Present on Arrival Any Indicators Present on Arrival: No History of DVT/PE: No History of Uncontrolled Diabetes: No Urinary Catheter: No History Surgical Site Infection Following: None - Disposition Have Diagnosis and Disposition been Completed?: Yes Diagnosis: Musculoskeletal pain Disposition: HOME/ ROUTINE Disposition Time: 18:08 Patient Plan: Discharge Condition: GOOD Discharge Instructions (ExitCare): Muscle and Bone Pain (DC) Additional Instructions: Call private doctor for follow up visit in 1-2 days. Take medication as instructed. Return to emergency if pain worsen. Do not drive or operate machinery for at least 12 hours if you take Robaxin, muscle relaxer Prescriptions: Methocarbamol [Robaxin-750] 750 mg PO TID #21 tab Naproxen 500 mg PO BID PRN #14 tab PRN Reason: Pain, Severe (8-10) Referrals: Rome Marmolejo MD [Primary Care Provider] - Follow up with primary Forms: WORK NOTE
--- NOTE | 2018-05-07 17:51 | RAD ---
HISTORY: right posterior upper back pain COMPARISON: 03/27/2018. TECHNIQUE: Chest PA and lateral FINDINGS: LUNGS: Hyperinflation without focal abnormality. PLEURA: No significant pleural effusion identified. No pneumothorax apparent. CARDIOVASCULAR: Normal. OSSEOUS STRUCTURES: No significant abnormalities. VISUALIZED UPPER ABDOMEN: Normal. OTHER FINDINGS: None. IMPRESSION: No active disease. No significant interval change compared to the prior examination(s).
--- NOTE | 2018-05-07 17:52 | RAD ---
PROCEDURE: Left middle finger radiographs. HISTORY: Pain. No history of recent/ related trauma provided COMPARISON: None. TECHNIQUE: AP radiograph of the left hand, as well as spot oblique and lateral images of left middle finger were obtained. FINDINGS: LEFT MIDDLE FINGER: Left middle finger normal, without fracture of focal lesion. Remainder of the left hand (as seen on the AP view) is grossly unremarkable. JOINTS: Normal. SOFT TISSUES: Normal. OTHER FINDINGS: None. IMPRESSION: Normal left middle finger radiographs.
--- NOTE | 2018-05-07 17:52 | RAD ---
PROCEDURE: Right ribs HISTORY: right posterior rib pain COMPARISON: 05/07/2018 two-view chest TECHNIQUE: Standard protocol for this study/examination. FINDINGS: Negative study for displaced rib fracture. No underlying pleural or pulmonary parenchymal abnormalities IMPRESSION: No significant or acute findings to account for/ related to the clinical presentation.
[2018-05-07 18:46] VITALS: BP 117/70; PULSE 77
== END 2018-05-07 18:45 | disposition home or self-care (01) ==
LOC: ED 15:44
DX: M79.1 Myalgia (principal); F17.210 Nicotine dependence, cigarettes, uncomplicated
CPT/HCPCS: 71046; 71100; 73140; 96372; 99282; J1885